=== PATIENT | male | born 1995 | race Caucasian/White ===

== ENCOUNTER → 2019-06-10 | Outpatient (CLI) | payer SELFPAY | LOC: M OUTALCOH 08:47 | PROVIDERS: ATTEND Psychiatry & Neurology Addiction Medicine | DX: F10.10 Alcohol abuse, uncomplicated (principal) ==

== ENCOUNTER → 2019-07-02 | Outpatient (RCR) | payer SELFPAY | LOC: M OUTALCOH 06-20 10:43 | PROVIDERS: ATTEND Psychiatry & Neurology Addiction Medicine | DX: F10.10 Alcohol abuse, uncomplicated (principal); Z72.0 Tobacco use ==

== ENCOUNTER 2019-07-30 14:50 | Outpatient (RCR) | payer SELFPAY | END 2019-08-01 | LOC: M OUTALCOH 14:50 | PROVIDERS: ATTEND Psychiatry & Neurology Addiction Medicine | DX: F10.10 Alcohol abuse, uncomplicated (principal); Z72.0 Tobacco use ==

== ENCOUNTER 2019-08-27 13:36 | Outpatient (RCR) | payer SELFPAY | END 2019-09-01 | LOC: M OUTALCOH 13:36 | PROVIDERS: ATTEND Psychiatry & Neurology Addiction Medicine | DX: F10.10 Alcohol abuse, uncomplicated (principal); Z72.0 Tobacco use ==

== ENCOUNTER 2019-09-25 12:00 | Outpatient (RCR) | payer SELFPAY | END 2019-10-01 | LOC: M OUTALCOH 12:00 | PROVIDERS: ATTEND Psychiatry & Neurology Addiction Medicine | DX: F10.10 Alcohol abuse, uncomplicated (principal); Z72.0 Tobacco use ==

== ENCOUNTER 2019-10-22 14:16 | Outpatient (RCR) | payer SELFPAY | END 2019-11-01 | LOC: M OUTALCOH 14:16 | PROVIDERS: ATTEND Psychiatry & Neurology Addiction Medicine | DX: F10.10 Alcohol abuse, uncomplicated (principal); Z72.0 Tobacco use ==

== ENCOUNTER → 2020-03-03 | Outpatient (CLI) | payer SELFPAY | LOC: M OUTALCOH 07:59 | PROVIDERS: ATTEND Psychiatry & Neurology Addiction Medicine | DX: F12.20 Cannabis dependence, uncomplicated (principal) ==

== ENCOUNTER 2020-03-31 15:07 | Outpatient (RCR) | payer SELFPAY | END 2020-04-02 | LOC: M OUTALCOH 15:07 | PROVIDERS: ATTEND Psychiatry & Neurology Addiction Medicine | DX: F10.20 Alcohol dependence, uncomplicated (principal); F12.20 Cannabis dependence, uncomplicated; F17.200 Nicotine dependence, unspecified, uncomplicated ==

== ENCOUNTER 2020-04-28 15:16 | Outpatient (RCR) | payer BC, MEDICAID, SELFPAY | END 2020-05-03 | LOC: M OUTALCOH 15:16 | PROVIDERS: ATTEND Psychiatry & Neurology Addiction Medicine | DX: F10.20 Alcohol dependence, uncomplicated (principal); F17.200 Nicotine dependence, unspecified, uncomplicated; F12.20 Cannabis dependence, uncomplicated ==

== ENCOUNTER 2020-05-27 12:00 | Outpatient (RCR) | payer MEDICAID, SELFPAY | END 2020-05-31 | LOC: M OUTALCOH 12:00 | PROVIDERS: ATTEND Psychiatry & Neurology Addiction Medicine | DX: F10.20 Alcohol dependence, uncomplicated (principal); F12.20 Cannabis dependence, uncomplicated; F17.200 Nicotine dependence, unspecified, uncomplicated ==

== ENCOUNTER 2020-06-29 16:00 | Outpatient (RCR) | payer SELFPAY | END 2020-07-01 | LOC: M OUTALCOH 16:00 | PROVIDERS: ATTEND Psychiatry & Neurology Psychiatry | DX: F10.20 Alcohol dependence, uncomplicated (principal); F17.200 Nicotine dependence, unspecified, uncomplicated; F12.20 Cannabis dependence, uncomplicated ==

== ENCOUNTER 2020-07-21 08:00 | Outpatient (RCR) | payer SELFPAY | END 2020-07-31 | LOC: M OUTALCOH 08:00 | PROVIDERS: ATTEND Psychiatry & Neurology Psychiatry | DX: F10.20 Alcohol dependence, uncomplicated (principal); F12.20 Cannabis dependence, uncomplicated; F17.200 Nicotine dependence, unspecified, uncomplicated ==

== ENCOUNTER 2020-08-11 13:09 | Outpatient (RCR) | payer SELFPAY | END 2020-08-31 | LOC: M OUTALCOH 13:09 | PROVIDERS: ATTEND Psychiatry & Neurology Psychiatry | DX: F10.20 Alcohol dependence, uncomplicated (principal); F12.20 Cannabis dependence, uncomplicated; F17.200 Nicotine dependence, unspecified, uncomplicated ==

== ENCOUNTER 2024-12-02 12:17 | Emergency (ER) | payer OTHER, SELFPAY ==
[~2024-12-02] VITALS: Ht 167.6 cm; Wt 65.1 kg
[2024-12-02] MEDS ORDERED: CEPH500C PO (13:19)
[2024-12-02] MEDS: CEPHALEXIN 500 MG CAP PO ONE (13:24)
[2024-12-02 13:45] VITALS: BP 121/73; TEMP 98; O2SAT 99
[2024-12-02] MEDS: TETANUS/DIPHTH/ACEL. PERTUSSIS 0.5 ML SYR IM.IMMUN ONE (13:48)
== END 2024-12-02 13:52 | disposition home or self-care (01) ==
LOC: M ED 12:17
DX: S62.640B Nondisplaced fracture of proximal phalanx of right index finger, initial encounter for open fracture (principal); W28.XXXA Contact with powered lawn mower, initial encounter; Y92.9 Unspecified place or not applicable; Y93.9 Activity, unspecified; Y99.9 Unspecified external cause status; Z88.8 Allergy status to other drugs, medicaments and biological substances

== ENCOUNTER 2024-12-06 08:35 | Day surgery (SDC) | payer SELFPAY ==
[~2024-12-06] VITALS: Ht 167.6 cm; Wt 66.2 kg
[~2024-12-06 08:35] MED LIST: CEPH500C PO
[2024-12-06] MEDS ORDERED: LIDOCAINE 2% 100 MG/5 ML SDV (FOR ANES.) As Ordered ONE (09:10)
[2024-12-06] MEDS ORDERED: dexAMETHasone 4 MG/ML 1 ML VIAL As Ordered ONE (09:11)
[2024-12-06] MEDS ORDERED: ONDANSETRON 4MG 2ML VIAL As Ordered ONE (09:11)
[2024-12-06] MEDS ORDERED: ACET-907 PO (09:22)
[2024-12-06] MEDS ORDERED: IBUP200C25 PO (09:22)
[2024-12-06] MEDS ORDERED: MIDAZOLAM INJ 2 MG/2 ML VIAL As Ordered ONE (09:33)
[2024-12-06] MEDS ORDERED: ACETAMINOPHEN 1000MG/100ML IV BAG As Ordered ONE (10:18)
[2024-12-06] MEDS ORDERED: KETOROLAC 30 MG/ML 1 ML VIAL As Ordered ONE (11:36)
[2024-12-06] MEDS ORDERED: PERC5TAB12 PO (12:16)
[2024-12-06 13:10] VITALS: BP 130/76; TEMP 97; O2SAT 99
== END 2024-12-06 14:00 | disposition home or self-care (01) ==
LOC: M SDC 08:35
PROVIDERS: ATTEND Orthopaedic Surgery Hand Surgery
DX: S62.610A Displaced fracture of proximal phalanx of right index finger, initial encounter for closed fracture (principal); W28.XXXA Contact with powered lawn mower, initial encounter; Y93.9 Activity, unspecified; Y92.9 Unspecified place or not applicable; F17.220 Nicotine dependence, chewing tobacco, uncomplicated; Z88.8 Allergy status to other drugs, medicaments and biological substances
CPT/HCPCS: 26735; 76000; J0131; J0665; J0690; J1100; J1885; J2250; J2405; J3010

== ENCOUNTER → 2024-12-19 | Outpatient (CLI) | payer SELFPAY ==
[~2024-12-19] MED LIST changes: +ACET-907 PO; +IBUP200C25 PO; +PERC5TAB12 PO
== END ==
LOC: M SOG 07:20
PROVIDERS: ATTEND Physician Assistant
DX: S62.610A Displaced fracture of proximal phalanx of right index finger, initial encounter for closed fracture (principal); W18.30XA Fall on same level, unspecified, initial encounter; Y92.009 Unspecified place in unspecified non-institutional (private) residence as the place of occurrence of the external cause

== ENCOUNTER → 2025-01-03 | Outpatient (CLI) | payer SELFPAY | LOC: M SOG 07:24 | PROVIDERS: ATTEND Physician Assistant | DX: S62.601D Fracture of unspecified phalanx of left index finger, subsequent encounter for fracture with routine healing (principal) ==

== ENCOUNTER → 2025-01-23 | Outpatient (CLI) | payer SELFPAY | LOC: M SOG 07:18 | PROVIDERS: ATTEND Physician Assistant | DX: S62.610D Displaced fracture of proximal phalanx of right index finger, subsequent encounter for fracture with routine healing (principal); Z53.9 Procedure and treatment not carried out, unspecified reason ==